=== PATIENT | male | born 1990 | race Caucasian/White ===

== ENCOUNTER 2017-09-17 23:07 | Emergency (ER) | payer OTHER ==
[~2017-09-17] VITALS: Ht 190.5 cm; Wt 86.2 kg
[2017-09-18] MEDS ORDERED: NORCO 7.5-3251 EACH PO (01:42)
[2017-09-18] MEDS ORDERED: CYCLOBENZAPRINE10 MG PO (02:28)
== END 2017-09-18 02:32 | disposition home or self-care (01) ==
LOC: ED 23:07
DX: S52.592A Other fractures of lower end of left radius, initial encounter for closed fracture (principal); S52.612A Displaced fracture of left ulna styloid process, initial encounter for closed fracture; Z88.8 Allergy status to other drugs, medicaments and biological substances; X58.XXXA Exposure to other specified factors, initial encounter; Y93.23 Activity, snow (alpine) (downhill) skiing, snowboarding, sledding, tobogganing and snow tubing; Y92.89 Other specified places as the place of occurrence of the external cause; Y99.9 Unspecified external cause status

== ENCOUNTER → 2017-10-27 | Outpatient (CLI) | payer OTHER ==
[~2017-10-27] MED LIST: CYCLOBENZAPRINE10 MG PO; NORCO 7.5-3251 EACH PO
== END | disposition home or self-care (01) ==
LOC: ORTHO 10:37
DX: S52.502A Unspecified fracture of the lower end of left radius, initial encounter for closed fracture (principal); X58.XXXA Exposure to other specified factors, initial encounter; Y92.89 Other specified places as the place of occurrence of the external cause; Y93.89 Activity, other specified; Y99.8 Other external cause status